=== PATIENT | female | born 1990 | race Caucasian/White ===

== ENCOUNTER 2017-03-15 15:38 | Emergency (ER) | payer OTHER ==
[2017-03-15 16:00] VITALS: BP 114/72
[2017-03-15] MEDS ORDERED: Tetan/Diph/Pertus SYR(Tdap)* 0.5 ML SYR(BOOSTRIX) use SYR IM ONE (16:18)
--- NOTE | 2017-03-15 16:49 | UC ---
Skin Complaint HPI - HPI Summary HPI Summary: ABRASION TO LEFT KNEE LAST WEEKEND. HAS FORMED SCAR TISSUE AND HES BEEN TREATING AREA WITH HYDROGEN PEROXIDE. LAST NIGHT WAS PLAYING SOFT BALL. ABRASIONS TO LEFT LOWER LEG WELL LEFT KNEE. DISCHARGE FROM KNEE ABRASION TODAY. NO FEVER. TETANUS STATUS UNKNOWN - History of Current Complaint Chief Complaint: UCLaceration Stated Complaint: KNEE LACERATION Hx Obtained From: Patient Hx Last Menstrual Period: 02/27/17 Onset/Duration: Sudden Onset, Lasting Weeks, Still Present, Worse Since - YESTERDAY Skin Exposure Onset/Duration: Days Ago Onset Severity: Mild Current Severity: Mild Location: Discrete - LEFT KNEE; LEFT LOWER LEG ABRASIONS Character: Redness Aggravating: Touch Alleviating: Nothing Associated Signs & Symptoms: Positive: Rash, Tenderness. Negative: Fever, Chills, Red Streaks, Joint Swelling Related History: Trauma - Allergy/Home Medications Allergies/Adverse Reactions: Allergies Allergy/AdvReac Type Severity Reaction Status Date / Time Doxycycline Allergy Nausea Verified 03/15/17 16:00 Review of Systems Constitutional: Negative Skin: Other - ABRASION LEFT KNEE LEFT LOWER LEG Eyes: Negative ENT: Negative Respiratory: Negative Cardiovascular: Negative Gastrointestinal: Negative Genitourinary: Negative Motor: Negative Neurovascular: Negative Musculoskeletal: Negative Neurological: Negative Psychological: Negative All Other Systems Reviewed And Are Negative: Yes PMH/Surg Hx/FS Hx/Imm Hx Previously Healthy: Yes - Surgical History Surgical History: Yes Surgery Procedure, Year, and Place: wisdom teeth extraction 2008 - Family History Known Family History: Negative: Blood Disorder - Social History Occupation: Employed Full-time Lives: With Family Alcohol Use: Occasionally Substance Use Type: None Smoking Status (MU): Former Smoker Type: Cigarettes Have You Smoked in the Last Year: No Household Exposure Type: Cigarettes Physical Exam Triage Information Reviewed: Yes Appearance: Well-Appearing, No Pain Distress, Well-Nourished Vital Signs: Initial Vital Signs Temp 98.0 F 03/15/17 15:54 Pulse 94 03/15/17 15:54 Resp 18 03/15/17 15:54 BP 114/72 03/15/17 15:54 Pulse Ox 100 03/15/17 15:54 Vital Signs Reviewed: Yes Eye Exam: Normal ENT Exam: Normal Dental Exam: Normal Neck exam: Normal Neck: Positive: Supple, Nontender Respiratory Exam: Normal Respiratory: Positive: Chest non-tender, Lungs clear, Normal breath sounds, No respiratory distress Cardiovascular Exam: Normal Cardiovascular: Positive: RRR, No Murmur, Pulses Normal Abdominal Exam: Normal Musculoskeletal Exam: Normal Musculoskeletal: Positive: Strength Intact, ROM Intact, No Edema Neurological Exam: Normal Psychological Exam: Normal Skin: Positive: Other - DRAINING ABRASION LEFT KNEE, ABRASIONS LEFT LOWER LEG Course/Dx - Differential Diagnoses - Skin Complaint Differential Diagnoses: Abscess, Cellulitis, Impetigo, Local Allergic Reaction - Diagnoses Provider Diagnoses: LEFT KNEE/LOWER LEG ABRASIONS; CELLULITIS Discharge - Discharge Plan Condition: Stable Disposition: HOME Prescriptions: Cephalexin CAP* [Keflex CAP*] 500 mg PO TID #30 cap Patient Education Materials: Abrasion (ED) Referrals: Roz Hinkle PA [Primary Care Provider] -
== END 2017-03-15 16:54 | disposition home or self-care (01) ==
LOC: UCEAST 15:38
DX: S80.212A Abrasion, left knee, initial encounter (principal); S80.812A Abrasion, left lower leg, initial encounter; L03.116 Cellulitis of left lower limb; X58.XXXA Exposure to other specified factors, initial encounter; Y93.64 Activity, baseball; Y92.9 Unspecified place or not applicable; Z23 Encounter for immunization; Z88.1 Allergy status to other antibiotic agents; Z87.891 Personal history of nicotine dependence
CPT/HCPCS: 87070; 87205; 90471; 90715; 99212; G0463

== ENCOUNTER 2017-07-28 10:38 | Emergency (ER) | payer OTHER ==
[2017-07-28 11:04] VITALS: BP 126/68
--- NOTE | 2017-07-28 12:15 | UC ---
Throat Pain/Nasal Scottie HPI - HPI Summary HPI Summary: 26 yo female with sore throat x 2 days today hoarse no fever or chills no myalgias no cough or runny nose throat pain mild able to eat and drink without problems - History of Current Complaint Chief Complaint: UCRespiratory Stated Complaint: SORE THROAT Time Seen by Provider: 07/28/17 11:52 Hx Obtained From: Patient Hx Last Menstrual Period: 06/29/17 Onset/Duration: Gradual Onset, Lasting Days Severity: Mild Pain Intensity: 2 Pain Scale Used: 0-10 Numeric Associated Signs & Symptoms: Positive: Hoarseness - Allergies/Home Medications Allergies/Adverse Reactions: Allergies Allergy/AdvReac Type Severity Reaction Status Date / Time Doxycycline AdvReac Nausea Verified 07/28/17 11:04 Home Medications: Home Medications Ibuprofen [Ibuprofen 200] 400 mg PO PRN 07/28/17 [History] PMH/Surg Hx/FS Hx/Imm Hx Previously Healthy: Yes - Surgical History Surgical History: None Surgery Procedure, Year, and Place: wisdom teeth extraction 2008 - Family History Known Family History: Positive: Hypertension, Diabetes, Other - mom pancreatic CA Negative: Blood Disorder - Social History Alcohol Use: Occasionally Substance Use Type: None Smoking Status (MU): Former Smoker Type: Cigarettes Amount Used/How Often: only smoked for 6 months Have You Smoked in the Last Year: No When Did the Patient Quit Smoking/Using Tobacco: 2009 Household Exposure Type: Cigarettes Review of Systems Constitutional: Negative Skin: Negative Eyes: Negative ENT: Sore Throat Respiratory: Negative Cardiovascular: Negative Gastrointestinal: Negative Genitourinary: Negative Motor: Negative Neurovascular: Negative Musculoskeletal: Negative Neurological: Negative Psychological: Negative Is Patient Immunocompromised?: No All Other Systems Reviewed And Are Negative: Yes Physical Exam Triage Information Reviewed: Yes Appearance: Well-Appearing, No Pain Distress, Well-Nourished Vital Signs: Initial Vital Signs Temp 99.3 F 07/28/17 10:55 Pulse 89 07/28/17 10:55 Resp 14 07/28/17 10:55 BP 126/68 07/28/17 10:55 Pulse Ox 100 07/28/17 10:55 Vital Signs Reviewed: Yes Eyes: Positive: Conjunctiva Clear ENT: Positive: Hearing grossly normal, Pharynx normal, TMs normal, Hoarse voice , Uvula midline. Negative: Nasal drainage, Tonsillar swelling, Tonsillar exudate, Trismus, Muffled voice, Dental tenderness, Sinus tenderness Dental Exam: Normal Neck: Positive: Supple, Nontender, No Lymphadenopathy Respiratory: Positive: Lungs clear, Normal breath sounds, No respiratory distress, No accessory muscle use Cardiovascular: Positive: RRR, No Murmur. Negative: Tachycardia Diagnostics - Laboratory Diagnostic Studies Completed/Ordered: strep(-) Throat Pain/Nasal Course/Dx - Differential Dx/Diagnosis Provider Diagnoses: laryngitis Discharge - Discharge Plan Condition: Stable Disposition: HOME Patient Education Materials: Pharyngitis (ED) Referrals: Sesar Paul, [Primary Care Provider] - If Needed Additional Instructions: strep (-) please get rechecked for fever/worsening pain or new symptoms recheck in 4 days if not better
== END 2017-07-28 12:20 | disposition home or self-care (01) ==
LOC: UCEAST 10:38
DX: J04.0 Acute laryngitis (principal); Z88.1 Allergy status to other antibiotic agents; Z87.891 Personal history of nicotine dependence
CPT/HCPCS: 87651; 99211; G0463

== ENCOUNTER 2017-12-20 09:00 | Emergency (ER) | payer BC, OTHER ==
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
--- NOTE | 2017-12-20 11:02 | RAD ---
Indication: Head injury. Headaches. CT of the brain was performed without IV contrast. Ventricular structures are midline. No midline shift is noted. The extra-axial spaces are unremarkable. There is no evidence of intracranial mass or hemorrhage. No other high or low density lesion is identified. Mastoid air cells and paranasal sinuses are unremarkable. IMPRESSION: There is no evidence of intracranial mass or hemorrhage.
[2017-12-20 11:30] VITALS: BP 104/70
== END 2017-12-20 11:46 | disposition home or self-care (01) ==
LOC: UCEAST 09:00
DX: S06.0X0A Concussion without loss of consciousness, initial encounter (principal); W21.07XA Struck by softball, initial encounter; Y93.64 Activity, baseball; Y92.320 Baseball field as the place of occurrence of the external cause; Z88.1 Allergy status to other antibiotic agents; Z87.891 Personal history of nicotine dependence
CPT/HCPCS: 70450; 99211; G0463

== ENCOUNTER 2023-08-24 11:58 | Inpatient (IN) ==
[2023-08-24] MEDS ORDERED: Lactated Ringers 1000 ml BAG 1,000 ML IV ONE (12:11)
[2023-08-24] MEDS ORDERED: Nalbuphine 10 MG/ML 1 ML VIAL IV PRN (12:11)
[2023-08-24] MEDS ORDERED: Promethazine INJ(RESTRICTED) 25 MG/ML 1 ml VIAL IV PRN (12:11)
[2023-08-24] MEDS ORDERED: Lidocaine 1% VIAL 10 MG/ML 30 ML VIAL INJ PRN (12:11)
[2023-08-24] MEDS ORDERED: Buffered Lidocaine 1% SYRIN 1 ml INTRADERM ONE (12:11)
[2023-08-24 13:01] LABS: ABS Eosinophils 0.1 10^3/uL (0.0-0.5); ABS Lymphocytes 1.4 10^3/uL (1.0-4.8); ABS Monocytes 0.5 10^3/uL (0.0-0.9); ABS Neutrophils 5.5 10^3/uL (1.5-7.6); ABS Nucleated RBC 0.01 10^3/ul; Hematocrit 36.7 % (35-45); Hemoglobin 12.6 g/dL (11.5-14.3); Lymphocyte % 18.6 %; Mean Corpuscular Hemoglobin 29.6 pg (27-33); Mean Corpuscular Hgb Conc 34.2 g/dL (31-36); Mean Corpuscular Volume 86.5 fL (80-97); Mean Platelet Volume 8.2 fL (7.5-11.2); Nucleated Red Blood Cells % 0.1 %/100WBC (0.0-0.8); Platelet Count 211 10^3/uL (150-450); Red Blood Count 4.25 10^6/uL (3.63-4.92); Red Cell Distribution Width 13.9 % (12-17); White Blood Count 7.4 10^3/uL (3.8-11.8)
[2023-08-24 13:24] LABS: Urine Benzodiazepine Screen None Detected (None Detect); Urine Cannabinoids Screen None Detected (None Detect); Urine Opiates Screen None Detected (None Detect)
[2023-08-24 13:32] LABS: Albumin 3.9 g/dL (3.2-5.2); Albumin/Globulin Ratio 1.1 (1-3); Calcium 9.6 mg/dL (8.6-10.3); Creatinine, Serum 0.86 mg/dL (0.51-0.95); Globulin 3.5 g/dL (2-4); Potassium 4.3 mmol/L (3.5-5.0); Total Bilirubin 0.5 mg/dL (0.2-1.0); Total Protein 7.4 g/dL (6.4-8.9)
[2023-08-24] MEDS ORDERED: miSOPROStol 100 mcg TAB PO ONE ×3 (14:01→22:22)
[2023-08-24 14:03] LABS: Urine Creatinine Concentration 133.65 mg/dL (20.00-320.00); Urine TP Creat Ratio 0.56 mg/mg
[2023-08-25 00:54] LABS: ABS Eosinophils 0.1 10^3/uL (0.0-0.5); ABS Lymphocytes 1.9 10^3/uL (1.0-4.8); ABS Monocytes 0.5 10^3/uL (0.0-0.9); ABS Neutrophils 4.3 10^3/uL (1.5-7.6); ABS Nucleated RBC 0.01 10^3/ul; Eosinophil % 1.4 %; Hemoglobin 11.2 g/dL (11.5-14.3); Mean Corpuscular Hemoglobin 30.2 pg (27-33); Mean Corpuscular Hgb Conc 34.9 g/dL (31-36); Mean Corpuscular Volume 86.4 fL (80-97); Mean Platelet Volume 8.3 fL (7.5-11.2); Nucleated Red Blood Cells % 0.1 %/100WBC (0.0-0.8); Platelet Count 198 10^3/uL (150-450); Red Cell Distribution Width 13.9 % (12-17); White Blood Count 6.8 10^3/uL (3.8-11.8)
[2023-08-25 01:07] LABS: Albumin 3.5 g/dL (3.2-5.2); Albumin/Globulin Ratio 1.1 (1-3); Calcium 8.8 mg/dL (8.6-10.3); Creatinine, Serum 0.93 mg/dL (0.51-0.95); Globulin 3.3 g/dL (2-4); Potassium 4.1 mmol/L (3.5-5.0); Total Bilirubin 0.4 mg/dL (0.2-1.0); Total Protein 6.8 g/dL (6.4-8.9); eGFR CKD-EPI 83.7 (>60)
[2023-08-25] MEDS ORDERED: miSOPROStol 100 mcg TAB PO ONE ×3 (09:16→18:11)
[2023-08-25 18:24] LABS: ABS Eosinophils 0.1 10^3/uL (0.0-0.5); ABS Lymphocytes 1.6 10^3/uL (1.0-4.8); ABS Monocytes 0.4 10^3/uL (0.0-0.9); ABS Neutrophils 4.5 10^3/uL (1.5-7.6); Eosinophil % 1.1 %; Hematocrit 34.3 % (35-45); Hemoglobin 11.9 g/dL (11.5-14.3); Lymphocyte % 24.3 %; Mean Corpuscular Hgb Conc 34.7 g/dL (31-36); Mean Corpuscular Volume 86.5 fL (80-97); Mean Platelet Volume 8.3 fL (7.5-11.2); Nucleated Red Blood Cells % 0.1 %/100WBC (0.0-0.8); Platelet Count 199 10^3/uL (150-450); Red Blood Count 3.97 10^6/uL (3.63-4.92); Red Cell Distribution Width 13.9 % (12-17); White Blood Count 6.6 10^3/uL (3.8-11.8)
[2023-08-25 18:46] LABS: Albumin 3.6 g/dL (3.2-5.2); Calcium 9.7 mg/dL (8.6-10.3); Creatinine, Serum 0.9 mg/dL (0.51-0.95); Globulin 3.6 g/dL (2-4); Potassium 4.3 mmol/L (3.5-5.0); Total Bilirubin 0.4 mg/dL (0.2-1.0); Total Protein 7.2 g/dL (6.4-8.9); eGFR CKD-EPI 87.1 (>60)
[2023-08-25] MEDS ORDERED: Ondansetron 4 mg VIAL 2 MG/ML 2 ml VIAL IV PRN (23:21)
[2023-08-26] MEDS ORDERED: Oxytocin in LR 20,000 MILLI.UNIT/1,000 ML BAG IV SCH (01:15)
[2023-08-26] MEDS: Lactated Ringers 1000 ml BAG 1,000 ML IV SCH ×3 (02:00→13:34)
[2023-08-26] MEDS ORDERED: Promethazine INJ(RESTRICTED) 25 MG/ML 1 ml VIAL IV ONE (10:19)
[2023-08-26] MEDS ORDERED: Lidocaine 1.5% EPI 1:200,000 30 ML SDV ONE (12:30)
[2023-08-26] MEDS ORDERED: OBEPIDURAL (200 ML) 200 ML EPIDURAL ONE (12:30)
[2023-08-26] MEDS ORDERED: Lactated Ringers 1000 ml BAG 1,000 ML IV ONE (13:38)
[2023-08-26] MEDS ORDERED: Phenylephrine 40 mcg/mL 10mL (400mcg) SYRINGE IV PUSH PRN ×2 (13:38)
[2023-08-26] MEDS ORDERED: Lactated Ringers 1000 ml BAG 500 ML IV PRN ×2 (13:38)
[2023-08-26] MEDS ORDERED: Sodium Citrate/Citric Acid LIQ 15 ML UDC PO PRN (13:38)
[2023-08-26] MEDS ORDERED: Lactated Ringers 1000 ml BAG 1,000 ML IV SCH ×2 (14:00)
[2023-08-26] MEDS ORDERED: OBEPIDURAL (200 ML) 200 ML EPIDURAL SCH (14:00)
[2023-08-26] MEDS ORDERED: Calcium Carb (TUMS) 500 mg CHEW TAB PO ONE (14:15)
[2023-08-26 14:16] LABS: Urine Appearance Clear; Urine Bilirubin Negative (Negative); Urine Blood 1+ (Negative); Urine Color Yellow; Urine Glucose Negative (Negative); Urine Ketones 1+ (Negative); Urine Nitrite Negative (Negative); Urine Protein 2+(100 mg/dL) (Negative); Urine Specific Gravity 1.017 (1.002-1.030); Urine Urobilinogen Negative (Negative)
[2023-08-26 14:18] LABS: Urine Bacteria Absent (Absent); Urine Red Blood Cell 1+(3-5/hpf) (Absent); Urine White Blood Cell Trace(0-5/hpf) (Absent)
[2023-08-26 18:33] LABS: ABS Lymphocytes 1.3 10^3/uL (1.0-4.8); ABS Monocytes 0.4 10^3/uL (0.0-0.9); ABS Neutrophils 8.7 10^3/uL (1.5-7.6); Eosinophil % 0.1 %; Hemoglobin 11.1 g/dL (11.5-14.3); Lymphocyte % 12.1 %; Mean Corpuscular Hemoglobin 30.1 pg (27-33); Mean Corpuscular Hgb Conc 34.6 g/dL (31-36); Mean Corpuscular Volume 86.8 fL (80-97); Mean Platelet Volume 8.1 fL (7.5-11.2); Platelet Count 190 10^3/uL (150-450); Red Blood Count 3.69 10^6/uL (3.63-4.92); White Blood Count 10.4 10^3/uL (3.8-11.8)
[2023-08-26 18:50] LABS: Albumin 3.3 g/dL (3.2-5.2); Albumin/Globulin Ratio 1.1 (1-3); Calcium 9.2 mg/dL (8.6-10.3); Creatinine, Serum 0.87 mg/dL (0.51-0.95); Globulin 3.1 g/dL (2-4); Total Bilirubin 0.7 mg/dL (0.2-1.0); Total Protein 6.4 g/dL (6.4-8.9); eGFR CKD-EPI 90.7 (>60)
[2023-08-27] MEDS ORDERED: fentaNYL 100 mcg/2 ml 50 MCG/ML VIAL ONE ×2 (01:57→05:51)
[2023-08-27] MEDS ORDERED: Lidocaine PATCH 5% PATCH TRANSDERM ONE (03:21)
[2023-08-27] MEDS ORDERED: OBEPIDURAL (200 ML) 200 ML EPIDURAL ONE (03:50)
[2023-08-27] MEDS ORDERED: ceFOXitin 2 GM IVPREMIX 2 GM/50 ML BAG IVPB ONE (04:25)
[2023-08-27] MEDS ORDERED: Morphine PF AMP (0.5MG/ML) 5 MG/10 ML AMP ONE (05:54)
[2023-08-27] MEDS ORDERED: Methylergonovine 0.2 mg AMPULE 1 ml AMP ONE (07:26)
[2023-08-27] MEDS ORDERED: Acetaminophen IV 1 GM/100ML 1,000 MG/100 ML BAG IV PRN (08:39)
[2023-08-27] MEDS ORDERED: Metoclopramide 5 MG/ML VIAL (10 mg) IV PRN (08:39)
[2023-08-27] MEDS ORDERED: Naloxone 0.4 mg VIAL 0.4 mg/ml 1 ml VIAL IV PUSH PRN (08:39)
[2023-08-27] MEDS ORDERED: Ondansetron 4 mg VIAL 2 MG/ML 2 ml VIAL IV PRN (08:39)
[2023-08-27] MEDS ORDERED: Glycerin ADULT 2.4 gm SUPP PR PRN (09:03)
[2023-08-27] MEDS ORDERED: Witch Hazel PAD JAR TOPICAL PRN (09:03)
[2023-08-27] MEDS ORDERED: RHO D Immune Globulin (HUMAN) 300 MCG = 1,500 I.U. INJ IM PRN (09:03)
[2023-08-27] MEDS ORDERED: Dibucaine 1% OINT 28.35 GM TUBE PR PRN (09:03)
[2023-08-27] MEDS ORDERED: Oxytocin in LR 20,000 MILLI.UNIT/1,000 ML BAG IV SCH (09:05)
[2023-08-27] MEDS ORDERED: Phenylephrine 40 mcg/mL 10mL (400mcg) SYRINGE ONE (09:10)
[2023-08-27] MEDS ORDERED: Oxytocin 10 UNITS/ML 1 ML VIAL ONE (09:10)
[2023-08-27] MEDS: Lactated Ringers 1000 ml BAG 1,000 ML IV SCH (09:40)
[2023-08-27] MEDS ORDERED: Lactated Ringers 1000 ml BAG 1,000 ML IV SCH (10:00)
[2023-08-28 07:01] LABS: ABS Eosinophils 0.1 10^3/uL (0.0-0.5); ABS Monocytes 0.4 10^3/uL (0.0-0.9); ABS Neutrophils 5.8 10^3/uL (1.5-7.6); ABS Nucleated RBC 0.01 10^3/ul; Eosinophil % 0.7 %; Hematocrit 19.5 % (35-45); Hemoglobin 6.8 g/dL (11.5-14.3); Mean Corpuscular Hemoglobin 30.5 pg (27-33); Mean Corpuscular Hgb Conc 34.9 g/dL (31-36); Mean Corpuscular Volume 87.3 fL (80-97); Mean Platelet Volume 7.7 fL (7.5-11.2); Nucleated Red Blood Cells % 0.1 %/100WBC (0.0-0.8); Platelet Count 126 10^3/uL (150-450); Red Blood Count 2.24 10^6/uL (3.63-4.92); Red Cell Distribution Width 14.2 % (12-17); White Blood Count 7.3 10^3/uL (3.8-11.8)
[2023-08-28] MEDS: Iron Sucrose 200 MG in NS 0.9% 100 ml BAG 100 ML IVPB SCH (11:18)
[2023-08-29] MEDS: Iron Sucrose 200 MG in NS 0.9% 100 ml BAG 100 ML IVPB SCH (11:40)
[2023-08-30 07:40] LABS: Hematocrit 24.4 % (35-45); Hemoglobin 8.7 g/dL (11.5-14.3)
[2023-08-30 09:24] VITALS: BP 139/78
== END 2023-08-30 11:45 | disposition home or self-care (01) | DRG 540 ==
LOC: MCHOBOUT 11:58 → MCHOB 12:33
PROVIDERS: ADMIT Obstetrics & Gynecology; ATTEND Obstetrics & Gynecology